=== PATIENT | female | born 1995 | race Caucasian/White ===

== ENCOUNTER 2021-01-22 12:13 | Emergency (ER) | payer BC, SELFPAY ==
[2021-01-22 12:24] VITALS: BP 130/88; PULSE 80; RESP 16; O2SAT 100
--- NOTE | 2021-01-22 12:53 | ED.URI ---
HPI - URI/Sore Throat General Chief Complaint: Upper Respiratory Infection Stated Complaint: Sore Throat Ear Pain Time Seen by Provider: 01/22/21 12:44 Source: patient and RN notes reviewed Mode of arrival: ambulatory Limitations: no limitations History of Present Illness HPI Narrative: Patient presents today with a 4-day history of sore throat, right ear pain, and fatigue. Denies cough, congestion, rhinorrhea, fever, shortness of breath or difficulty swallowing, nausea, vomiting, diarrhea. Currently rates her sore throat 2/ and has been taking Nikky-D and NyQuil without relief. Pain increases with swallowing. MD elicited complaint: sore throat Related Data Home Medications Medication Instructions Recorded Confirmed norethindrone-e.estradiol-iron 1 cap PO DAILY 01/22/21 01/22/21 [[place]] Allergies Allergy/AdvReac Type Severity Reaction Status Date / Time No Known Allergies Allergy Unknown Verified 01/22/21 12:34 Review of Systems Review of Systems: Narrative: CONSTITUTIONAL: Denies body aches, fever, chills, or sweats.+ Fatigue EYES: Denies visual changes, redness, or discharge. ENT: Denies rhinorrhea, congestion. + Sore throat, right ear pain CARDIOVASCULAR: Denies chest pain, palpitations, or edema. RESPIRATORY: Denies cough or dyspnea. GASTROINTESTINAL: Denies abdominal pain, nausea, vomiting, or diarrhea. GENITOURINARY: Denies dysuria or hematuria. SKIN: Denies rash, itching, or wounds. MUSCULOSKELETAL: Denies back pain, joint pain, or myalgia. NEUROLOGIC: Denies headache, numbness, tingling, or weakness. PSYCH: Denies depression or anxiety. [facility] Family History Family History Mother Patient's mother is in good health Father Patient's father is in good health Social History Social History Smoking status: Never smoker Second hand tobacco smoke exposure: No Alcohol intake: current Drinks per week: 4 Substance use: never Comments At time of signature, I have reviewed and agree with nursing past medical, surgical, social and family history unless otherwise noted. Please see nursing chart for further information. There is no relevant family history pertinent to the presenting complaint Exam Narrative: Exam Narrative: GENERAL: Well-appearing, well-nourished, and in no acute distress. HEAD: Normocephalic, atraumatic. EYES: EOMI. No redness or drainage. Conjunctivae normal. ENT: Mucous membranes pink and moist. Nares mildly congested. No rhinorrhea. TMs normal bilaterally. Uvula midline.~3mm round erythematous ulceration to the right palatine arch. NECK: Normal AROM. Supple. No lymphadenopathy. CHEST: No respiratory distress. Clear to auscultation. HEART: Regular rate and rhythm. No murmur appreciated. Normal peripheral pulses. EXTREMITIES: Normal range of motion. No edema. SKIN: Warm, dry, no rash. Capillary refill normal. Normal skin turgor. NEURO: No focal deficits. Alert and oriented x3. Gait steady. PSYCH: Normal affect. No signs of depression or anxiety. Course Vital Signs Vital signs: Vital Signs Pulse Rate 80 01/22/21 12:24 Respiratory Rate 16 01/22/21 12:24 Blood Pressure 130/88 01/22/21 12:24 Pulse Oximetry 100 01/22/21 12:24 Pulse Rate 80 01/22/21 12:24 Respiratory Rate 16 01/22/21 12:24 Blood Pressure 130/88 01/22/21 12:24 Pulse Oximetry 100 01/22/21 12:24 Reviewed. Pt has been instructed to follow up with her PCP regarding her elevated blood pressure today. MDM - URI/Sore Throat Differential Diagnosis Differential diagnosis: Likely upper respiratory infection, otitis media, sinusitis, viral infection, pharyngitis and other (Strep throat, rhinitis, seasonal allergies) Lab Data Attestation: I reviewed the patient's lab results. Labs: Strep Screen Presumptive Negative
[2021-01-22 12:56] VITALS: TEMP 36.6
== END 2021-01-22 13:02 | disposition home or self-care (01) ==
PROVIDERS: Emergency Provider Nurse Practitioner; PCP Internal Medicine
DX: J30.9 Allergic rhinitis, unspecified (principal); K12.0 Recurrent oral aphthae
CPT/HCPCS: 87081; 87880; 99213; G0463

== ENCOUNTER 2021-03-07 11:58 | Outpatient (CLI) | payer BC, SELFPAY ==
[2021-03-07 12:35] LABS: Hematocrit 35.4 % (37.0-47.0); Hemoglobin 11.4 g/dL (12.0-15.0); Mean Corpuscular HGB Conc 32.2 g/dl (32-36); Mean Corpuscular Hemoglobin 28.9 pg (26-34); Mean Corpuscular Volume 89.8 fl (80-100); Platelet Count Result 236 k/mm3 (150-375); Red Blood Count 3.94 M/mm3 (4.2-5.4); Red Cell Distribution Width 12.4 % (11.5-14.5); White Blood Count 6.8 K/mm3 (4.5-10.0)
[2021-03-07 12:46] LABS: Alanine Aminotransferase 28 U/L (4-35); Albumin Level 4.3 g/dL (3.5-5.1); Alkaline Phosphatase 80 U/L (38-126); Anion Gap 5 mmol/L (8-16); Aspartate Amino Transferase 31 U/L (14-36); Bilirubin,Total 0.4 mg/dL (0.2-1.3); Blood Urea Nitrogen 11 mg/dL (7-17); Calcium 9.1 mg/dL (8.4-10.2); Carbon Dioxide 27 mmol/L (22-30); Chloride 107 mmol/L (98-107); Cholesterol 239 mg/dL (0-200); Estimated Glomerular Filt Rate > 60; Glucose 90 mg/dL (65-110); HDL Direct 88 mg/dL; Sodium 139 mmol/L (137-145); Triglycerides 131 mg/dL (<150)
[2021-03-07 12:58] LABS: LDL Cholesterol Direct 114 mg/dL
[2021-03-07 13:52] LABS: Folic Acid 10.6 ng/mL (2.76->20)
[2021-03-07 19:29] LABS: Iron 55 ug/dL (37-170)
[2021-03-07 19:38] LABS: Percent Iron Saturation 18 % (20-50)
== END 2021-03-07 11:59 | disposition home or self-care (01) ==
PROVIDERS: PCP Internal Medicine; Visit Provider Physician Assistant
DX: Z00.00 Encounter for general adult medical examination without abnormal findings (principal); D64.9 Anemia, unspecified
CPT/HCPCS: 36415; 80053; 80061; 82607; 82728; 82746; 83540; 83550; 84443; 85027

== ENCOUNTER 2023-01-27 12:30 | Emergency (ER) | payer OTHER, SELFPAY ==
[2023-01-27 12:49] VITALS: BP 144/86; PULSE 84; RESP 16; TEMP 36.6; O2SAT 100
--- NOTE | 2023-01-27 13:04 | ED.ANIMALBIT ---
HPI - Animal Bite General Chief Complaint: Animal Bite Stated Complaint: dog bite right leg Time Seen by Provider: 01/27/23 13:05 Source: patient Mode of arrival: ambulatory Limitations: no limitations History of Present Illness HPI narrative: 27-year-old female presented for evaluation of right lower leg wound which she sustained from a dog bite 4 days ago. Endorses mild swelling and bruising surrounding the abrasion. She was been by a client's personal dog. Unsure vaccination status. She has been cleaning the site with hydrogen peroxide and Neosporin. Denies redness, streaking, warmth or fever. Related Data Home Medications Medication Instructions Recorded Confirmed levonorgestrel 0.1 mg-ethinyl tablet 01/27/23 estradiol 20 mcg chewable tablet (Tyblume) Allergies Allergy/AdvReac Type Severity Reaction Status Date / Time No Known Allergies Allergy Unknown Verified 01/27/23 12:52 Review of Systems Review of Systems: CONSTITUTIONAL: Denies body aches, fever, chills, or sweats. EYES: Denies visual changes, redness, or discharge. ENT: Denies rhinorrhea, congestion CARDIOVASCULAR: Denies chest pain, palpitations, or edema. RESPIRATORY: Denies cough or dyspnea. GASTROINTESTINAL: Denies abdominal pain, nausea, vomiting, or diarrhea. SKIN: Per HPI MUSCULOSKELETAL: Denies back pain, joint pain, or myalgia. NEUROLOGIC: Denies headache, numbness, tingling, or weakness. [facility] Past Medical History Medical History (Updated 01/27/23 @ 13:14 by Karrie Fletcher APRN) No pertinent past medical history Family History Family History Mother Patient's mother is in good health Father Patient's father is in good health Social History Social History Smoking status: Never smoker Second hand tobacco smoke exposure: No Alcohol intake: current Drinks per week: 4 Substance use: never Comments At time of signature, I have reviewed and agree with nursing past medical, surgical, social and family history unless otherwise noted. Please see nursing chart for further information. There is no relevant family history pertinent to the presenting complaint Exam Narrative: GENERAL: Well-appearing HEAD: Normocephalic, atraumatic. EYES: conjunctivae clear, and EOMI. ENT: Mucous membranes moist. Oropharynx without edema, erythema or lesions. NECK: Supple. No lymphadenopathy CHEST: Clear to auscultation. HEART: Regular rate and rhythm. SKIN: Warm, dry. Right lower lateral leg with approximately 4 cm irregular superficial abrasion with surrounding bruising of approx 5cm diameter; no erythema, induration, fluctuance or streaking NEURO: Alert and oriented x3. Course Course Emergency Course: Patient is aware of diagnosis, understands and agrees to treatment plan. Anticipatory guidance given. Patient agrees to follow-up as directed and is aware of reasons to seek care at the emergency department. Portions of this record may have been created with voice recognition software Level of Care: Express Care Visit Vital Signs Vital signs: Vital Signs Temperature 98 F 01/27/23 12:49 Pulse Rate 84 01/27/23 12:49 Respiratory Rate 16 01/27/23 12:49 Blood Pressure 144/86 H 01/27/23 12:49 Pulse Oximetry 100 01/27/23 12:49 Oxygen Delivery Room Air 01/27/23 12:49 Temperature 98 F 01/27/23 12:49 Pulse Rate 84 01/27/23 12:49 Respiratory Rate 16 01/27/23 12:49 Blood Pressure 144/86 H 01/27/23 12:49 Pulse Oximetry 100 01/27/23 12:49 Oxygen Delivery Room Air 01/27/23 12:49 Reviewed MDM - Animal Bite MDM Narrative Medical decision making narrative: Discussed physical exam findings, site does not appear infected at this time however will send abx for dog bite wound. Advised supportive measures and signs/symptoms to go to the ER. Pt is appropriate fo
== END 2023-01-27 13:15 | disposition home or self-care (01) ==
PROVIDERS: Emergency Provider Nurse Practitioner Family; PCP Physician Assistant
DX: S80.811A Abrasion, right lower leg, initial encounter (principal); W54.0XXA Bitten by dog, initial encounter; M92.523 Juvenile osteochondrosis of tibia tubercle, bilateral; N80.9 Endometriosis, unspecified
CPT/HCPCS: 99213; G0463

== ENCOUNTER 2024-02-23 11:49 | Emergency (ER) | payer OTHER, SELFPAY ==
[2024-02-23 11:57] VITALS: BP 135/82; PULSE 85; RESP 16; TEMP 36.3; O2SAT 99
--- NOTE | 2024-02-23 12:01 | ED.SKABFB ---
HPI - Skin/Abscess/Foreign Bdy General Chief complaint: Skin/Abscess/Foreign Body Stated complaint: Insect Bite Time Seen by Provider: 02/23/24 12:01 Source: patient and RN notes reviewed Mode of arrival: ambulatory Limitations: no limitations History of Present Illness HPI narrative: 28-year-old female presents concern for an insect bite on her left breast. Reports she noticed it 2 days ago and has become a little larger, news writer. She denies any distinct tenderness, drainage, lumps. She denies fever, body aches, chills, sweats complaint: insect bite/sting Related Data Home Medications Medication Instructions Recorded Confirmed levonorgestrel 0.1 mg-ethinyl 1 tablet PO DAILY 01/27/23 02/23/24 estradiol 20 mcg chewable tablet (Tyblume) dextroamphetamine-amphetamine ER 15 mg PO DAILY 03/19/23 02/23/24 15 mg 24hr capsule,extend release (Adderall XR) Allergies Allergy/AdvReac Type Severity Reaction Status Date / Time No Known Allergies Allergy Unknown Verified 02/23/24 12:13 Review of Systems Review of Systems: CONSTITUTIONAL: Denies malaise, chills, sweats, or fever. EYES: Denies redness, or discharge. ENT: Denies rhinorrhea, congestion, swollen lips, swollen tongue CARDIOVASCULAR: Denies chest pain, palpitations, or edema. RESPIRATORY: Denies cough or dyspnea. GASTROINTESTINAL: Denies abdominal pain, nausea, vomiting SKIN: Reports a red bump on her left breast MUSCULOSKELETAL: Denies joint pain or myalgia. NEUROLOGIC: Denies headache. All systems reviewed & are unremarkable except as noted in HPI and below [facility] Past Medical History Medical History No pertinent past medical history Family History Family History Mother Patient's mother is in good health Father Patient's father is in good health Social History Social History Smoking status: Never smoker Second hand tobacco smoke exposure: No Alcohol intake: current Drinks per week: 4 Substance use: never Lack of Transportation: No Lack of Food: Never True Current Housing: I Have Housing Concerned About Future Housing: No Difficulty Paying Gas/Electric Bills: No Difficulty Paying for Meds: No Currently Unemployed: No Education: Master's Degree or Higher Difficulty w/ Childcare or Family Care: No Comments At time of signature, agree with nursing past medical, surgical, social and family history. There is no relevant family history pertinent to the presenting complaint Exam Narrative: GENERAL: Well-appearing, well-nourished, and in no acute distress. HEAD: Normocephalic, atraumatic. EYES: PERRLA, conjunctivae clear, and EOMI. ENT: Mucous membranes moist. Oropharynx without edema, erythema or lesions. NECK: Supple. No lymphadenopathy CHEST: Clear to auscultation. No respiratory distress. HEART: Regular rate and rhythm. SKIN: Warm, dry. Approximately 2 cm erythematous area to the left lateral breast with slightly scaly skin, slightly indurated and tender, no fluctuation noted consistent with an insect bite or spider bite NEURO: Alert and oriented x3. PSYCH: Normal mood and affect Course Course Emergency Course: Patient is aware of diagnosis, understands and agrees to treatment plan. Anticipatory guidance given. Patient agrees to follow-up as directed and is aware of reasons to seek care at the emergency department. Portions of this record may have been created with voice recognition software Level of Care: Express Care Visit Vital Signs Vital signs: Vital Signs Temperature 97.3 F L 02/23/24 11:57 Pulse Rate 85 02/23/24 11:57 Respiratory Rate 16 02/23/24 11:57 Blood Pressure 135/82 02/23/24 11:57 Pulse Oximetry 99 02/23/24 11:57 Oxygen Delivery Room Air 02/23/24 11:57 Temperature 97.3 F L 07
== END 2024-02-23 12:15 | disposition home or self-care (01) ==
PROVIDERS: Emergency Provider Nurse Practitioner; PCP Physician Assistant
DX: S20.162A Insect bite (nonvenomous) of breast, left breast, initial encounter (principal); W57.XXXA Bitten or stung by nonvenomous insect and other nonvenomous arthropods, initial encounter
CPT/HCPCS: 99213; G0463